=== PATIENT | female | born 1950 | race Caucasian/White ===

== ENCOUNTER 2019-02-21 15:54 | Emergency (ER) | payer OTHER ==
[~2019-02-21] VITALS: Ht 160 cm; Wt 65.0 kg
[~2019-02-21 15:54] MED LIST: ACET325T33 PO; TRAM50TA2 PO
[2019-02-21 15:57] VITALS: Ht 160 cm; Wt 65.0 kg
--- NOTE | 2019-02-21 20:13 | ERD ---
ER Documentation Chief Complaint Chief Complaint left foot pain x 4 days s/p missed step and fell no ko HPI 68-year-old female presents complaint of left foot pain for the past 4 days. Daughter is acting as director of learning said that she missed a step and fell. States that she did hit her head but there is no loss of conscious. States that she was complaining of headache before but is no longer planing of any headache. Denies any altered mental status, vomiting, neck pain, leg erythema, weakness, numbness, focal deficits. States that she is taking aspirin. ROS All systems reviewed and are negative except as per history of present illness. Medications Home Meds Active Scripts Acetaminophen* (Tylenol*) 325 Mg Tablet, 2 TAB PO Q6 PRN for PAIN AND OR ELEVATED TEMP, #20 TAB Prov:JEANNINE CABRERA PA-C 05/21/15 Tramadol HCl (Tramadol HCl) 50 Mg Tab, 50 MG PO Q4 PRN for PAIN, #20 TAB Prov:JEANNINE CABRERA PA-C 05/21/15 Allergies Allergies: Coded Allergies: No Known Allergy (Unverified , 05/21/15) PMhx/Soc Medical and Surgical Hx: pt denies Medical Hx, pt denies Surgical Hx Hx Alcohol Use: Yes Hx Substance Use: No Hx Tobacco Use: No Smoking Status: Never smoker FmHx Family History: No diabetes, No coronary disease, No other Physical Exam Vitals Vital Signs Date Temp Pulse Resp B/P (MAP) Pulse Ox O2 O2 Flow FiO2 Time Delivery Rate 02/21/19 98.5 100 18 173/75 98 15:57 (107) Physical Exam Const: No acute distress Head: Atraumatic Eyes: Normal Conjunctiva ENT: Normal External Ears, Nose and Mouth. Neck: Full range of motion. No meningismus. Resp: Clear to auscultation bilaterally Cardio: Regular rate and rhythm, no murmurs Abd: Soft, non tender, non distended. Normal bowel sounds Skin: No petechiae or rashes Back: No midline or flank tenderness Ext: Tenderness to palpation over the left fibula. There is no overlying edema or erythema noted. No bony deformity noted. There is edema and tenderness palpation over the ankle and dorsal pedis. There is no erythema, ecchymosis, or rubén deformity noted. Overlying skin is intact. Compartments are soft and warm. There is no pallor or cyanosis. Range of motion, distal pulses, and distal sensation is intact. There is normal cap refill. Neur: Awake and alert Psych: Normal Mood and Affect neuro: M/S: Alert and oriented Face: EOMI, face and pharynx with normal sensation and function Motor: Normal strength throughout Sensation: Normal sensation throughout Speech: Normal Cerebel: Normal coordination Normal gait Normal finger to nose DTR: 2+ and symmetric upper/lower extremities Procedures/MDM DIAGNOSTIC IMAGING REPORT Patient: BERNICE TORRES : 1950 Age: 68 Sex: F MR #: [id number] DOS: 02/21/191929 Ordering MD: MOLLY DEAN Location: [facility] Room/Bed: PROCEDURE: XR Left Foot. CLINICAL INDICATION: Trauma. Pain. TECHNIQUE: AP, lateral and oblique views of the left foot was obtained. The images were reviewed on a PACS workstation. COMPARISON: None. FINDINGS: There is acute slightly impacted fracture of the distal metadiaphysis of the second metacarpal. Joint relationships are maintained. Bone mineralization is within normal limits. There is small plantar and posterior calcaneal bone spurs are Soft tissues are unremarkable. IMPRESSION: Acute slightly impacted fracture of the distal metadiaphysis of the second metacarpal. Small plantar and posterior calcaneal bone spurs. RPTAT: [facility] .Cristóbal Hanks MD, Date Time Electronically viewed and signed by .Cristóbal Hanks MD, on 02/21/2019 20:25 .K/ CC: MOLLY DEAN [phone] MDM: Patient presentation with x-rays consistent with septum left metacarpal fracture. Is nondisplaced. I have low suspicion for neurovascular compromise, compartment syndrome, osteomyelitis, septic joint, DVT, or other emergent condition. Patient given referral to orthopedist and advised to follow-up within 24 hours. Patient placed in Ortho shoe. Splint Assessment: Neurovascularly intact post splint placement with good fit. At this time, patient is stable for discharge and outpatient management. I have instructed the patient to follow-up with his/her primary care physician in 1-2 days. I have discussed with the patient the possibility of needing to see a specialist for further workup and imaging studies if symptoms persist. I have instructed the patient to promptly return to the ER for any new or worsening symptoms including but not limited to increased pain, fever, nausea, vomiting, weakness or LOC. The patient and/or family expressed understanding of and agre ement with this plan. All questions were answered. Home care instructions were provided. [Communication with patient both during the exam and instructions for discharge were performed with using a privacy specialist . Patient gave verbal confirmation to the practitioner, through the privacy specialist, that they understood everythign that was being said to them.] DISCLAIMER: Inadvertent spelling and grammatical errors are likely due to EHR/dictation software use and do not reflect on the overall quality of patient care. Also, please note that the electronic time recorded on this note does not necessarily reflect the actual time of the patient encounter. Departure Diagnosis: Primary Impression: Metacarpal bone fracture Encounter type: initial encounter Metacarpal bone: second Fracture type: closed Metacarpal location: unspecified portion of metacarpal Fracture alignment: nondisplaced Laterality: left Qualified Codes: S62.301A - Unspecified fracture of second metacarpal bone, left hand, initial encounter for closed fracture Condition: Stable MOLLY DEAN Feb 21, 2019 20:13
[2019-02-21] MEDS ORDERED: ACET500C5 PO (20:35)
[2019-02-21 20:46] VITALS: BP 158/63; PULSE 78; RESP 18
== END 2019-02-21 21:04 | disposition home or self-care (01) ==
LOC: FTE 15:54
DX: S92.322A Displaced fracture of second metatarsal bone, left foot, initial encounter for closed fracture (principal); R51 Headache; W10.8XXA Fall (on) (from) other stairs and steps, initial encounter; Y92.9 Unspecified place or not applicable
CPT/HCPCS: 70450; 73562; 73590; 73610